=== PATIENT | female | born 1955 | race Caucasian/White ===

== ENCOUNTER → 2018-11-14 | Outpatient (CLI) | payer MEDICARE ==
[~2018-11-14] MED LIST: REGADENOSON 0.4 MG/5 ML DISP.SYRIN. IV ONE
--- NOTE | 2018-11-14 11:32 | PCVCIMAG ---
APPROVED REPORT Study performed: 11/14/2018 07:38:32 EXAM: Comprehensive 2D, Doppler, and color-flow Echocardiogram Patient Location: Echo lab Status: routine BSA: 1.89 HR: 83 bpmBP: 128/82 mmHg Rhythm: NSR Other Information Study Quality: Adequate Risk Factors: Cardiac Risk Factors: Hyperlipidemia Indications Syncope 2D Dimensions IVSd: 11.42 (7-11mm) LVDd: 42.21 mm PWd: 10.68 (7-11mm) LVDs: 32.50 (25-40mm) Left Atrium: 39.45 (27-40mm) Aortic Root: 32.09 mm LV Single Plane 4CH: 50.48 % LV Single Plane 2CH: 58.95 % Biplane EF: 55.5 % Volumes Left Atrial Volume (Systole) Single Plane 4CH: 45.09 mLSingle Plane 2CH: 63.15 mL LA ESV Index: 32.00 mL/m2 Aortic Valve AoV Peak Sotero.: 1.26 m/s AO Peak Gr.: 6.31 mmHgLVOT Max P.42 mmHg LVOT Max V: 0.92 m/s Mitral Valve E/A Ratio: 1.4 MV Decel. Time: 206.74 ms MV E Max Sotero.: 0.68 m/s MV A Sotero.: 0.49 m/s IVRT: 114.19 ms Pulmonary Valve PV Peak Sotero.: 0.91 m/sPV Peak Gr.: 3.29 mmHg Pulmonary Vein P Vein S: 0.28 m/sP Vein A: 0.31 m/s P Vein D: 0.42 m/sP Vein A Dur.: 114.2 msec P Vein S/D Ratio: 0.67 Tricuspid Valve TR Peak Sotero.: 2.18 m/s TR Peak Gr.: 18.93 mmHg TV Vmax: 0.65 m/s Left Ventricle The left ventricle is normal size. There is normal LV segmental wall motion. There is normal left ventricular wall thickness. Left ventricular systolic function is normal. The left ventricular ejection fraction is within the normal range. LVEF is 50-55%. The left ventricular diastolic function is normal. Right Ventricle The right ventricle is normal size. The right ventricular systolic function is normal. Atria The left atrium size is normal. The right atrium size is normal. Aortic Valve The aortic valve is normal in structure. No aortic regurgitation is present. There is no aortic valvular stenosis. Mitral Valve The mitral valve is normal in structure. Trace mitral regurgitation. No evidence of mitral valve stenosis. Tricuspid Valve The tricuspid valve is normal in structure. Trace tricuspid regurgitation with PAP of 26 mmHg. Pulmonic Valve The pulmonary valve is normal in structure. There is no pulmonic valvular regurgitation. Great Vessels The aortic root is normal in size. IVC is normal in size and collapses >50% with inspiration. Pericardium There is no pericardial effusion. There is no pleural effusion. <Conclusion> The left ventricle is normal size. LVEF is 50-55%. The aortic valve is normal in structure. The mitral valve is normal in structure. Trace mitral regurgitation. The tricuspid valve is normal in structure. Trace tricuspid regurgitation with PAP of 26 mmHg. The pulmonary valve is normal in structure. There is no pericardial effusion. There is no pleural effusion.
--- NOTE | 2018-11-14 12:42 | PCVCIMAG ---
APPROVED REPORT Imaging Protocol: Rest Tc-99m/Stress Tc-99m 1 day Study performed: 11/14/2018 08:43:55 Indication: Abnormal EKG, Syncope Patient Location: Out-Patient Stress Nurse: Keli Garcia RN, Justa Beaulieu RN [place] Tech:Latanya Angulo [facility] Ht: 5 ft 4 in Wt: 185 lbs BSA: 1.89 m2 HR: 82 bpm BP: 159/74 mmHg BMI: 31.75 Rhythm: Sinus Rhythm Medical History Medical History: HTN Medications: Pamelor, Zoloft Allergies: Sulfa Cardiac Risk Factors: Age Pretest Chest Pain Characteristics: No chest pain Exercise History: Indeterminate Physical Disabilities: Knees Resting Data Rest SPECT myocardial perfusion imaging was performed in supine position 45 minutes following the intravenous injection of 10.3 mCi of Tc-99m Sestamibi. Time of rest injection: 829 Date: 11/14/2018 Administration Route: IV Administration Site: Right AC Pharmacologic Stress Pharmacologic stress test was performed by injecting Regadenoson 0.4 mg IV push over 10-15 seconds immediately followed by the intravenous injection of 33.3 mCi of Tc-99m Sestamibi. Time of stress injection: 944 Date: 11/14/2018 Administration Route: IV Administration Site: Right Arm Gated Stress SPECT was performed 45 minutes after stress injection. The images were gated to evaluate regional wall motion and calculate left ventricular ejection fraction. Stress Test Details Stress Test: Pharmacologic stress was paired with low level exercise. Reason for pharmacologic stress test: knee issues. HRMax Heart Rate (APMHR): 158 bpm Resting HR: 82 bpmTarget HR (85% APMHR): 134 bpm Max HR Achieved: 118 bpm % of APMHR: 74 Recovery HR: 98 bpm BP Resting BP: 159/74 mmHg Max BP: 120/78 mmHg Recovery BP: 160/73 mmHg ECG Resting ECG: Sinus Rhythm Stress ECG: Sinus Tachycardia Recovery ECG: Sinus Rhythm Clinical Reason for Termination: Completed protocol Stress Symptoms: Nausea, Emesis Exercise duration: 4 min 00 sec Exercise capacity: 1.6 METs Symptoms resolved with caffeine. Stress ECG Conclusion 1. Adequate response to intravenous Lexiscan 2. Inadequate heart rate for ECG diagnosis Study Data Post stress, the left ventricular ejection was 75%.. SSS: 0 SRS: 2 SDS: 0 TID = 0.96. Perfusion There is a large area of moderately reduced uptake in the apical segment of the anterior and inferior wall which is seen on the stress images as well as the resting images. This area thickens and moves normally and is most consistent with attenuation artifact. Wall Motion Normal left ventricular wall motion. Nuclear Conclusion ECG Findings: non-diagnostic Clinical Findings: negative for ischemia Nuclear Findings: negative for ischemia Exercise Capacity: not assessed Left Ventricular Function: normal 1. Low risk study <Conclusion> 1. Adequate response to intravenous Lexiscan 2. Inadequate heart rate for ECG diagnosis
== END | disposition home or self-care (01) ==
LOC: PCVCIMAG 07:51
PROVIDERS: ATTEND Internal Medicine
DX: R55 Syncope and collapse (principal); R94.31 Abnormal electrocardiogram [ECG] [EKG]; E78.5 Hyperlipidemia, unspecified; M79.7 Fibromyalgia; Z79.82 Long term (current) use of aspirin
CPT/HCPCS: 78452; 93017; 93306; A9500; G0463; J2785

== ENCOUNTER → 2018-11-15 | Outpatient (CLI) | payer MEDICARE | END | disposition home or self-care (01) | LOC: PCVCCLINIC 10:09 | PROVIDERS: ATTEND Internal Medicine | DX: E78.5 Hyperlipidemia, unspecified (principal) | CPT/HCPCS: 36415 ==